=== PATIENT | male | born 2000 | race Caucasian/White ===

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

== ENCOUNTER → 2022-04-29 11:27 | Outpatient (BNVA) | payer MEDICAID, SELFPAY | PROVIDERS: PCP Nurse Practitioner; Visit Provider Nurse Practitioner | DX: J06.9 Acute upper respiratory infection, unspecified (principal); J02.9 Acute pharyngitis, unspecified; J45.909 Unspecified asthma, uncomplicated | CPT/HCPCS: 87070; 87071; 87486; 87581; 87633; 87880 ==

== ENCOUNTER → 2023-05-28 13:42 | Outpatient (BNVA) | payer SELFPAY | PROVIDERS: PCP Nurse Practitioner; Visit Provider Nurse Practitioner | DX: Z20.2 Contact with and (suspected) exposure to infections with a predominantly sexual mode of transmission (principal) | CPT/HCPCS: 87491; 87591; 87661 ==

== ENCOUNTER 2024-12-19 22:46 | Emergency (ER) | payer OTHER, SELFPAY ==
--- NOTE | 2024-12-19 00:01 | XRR_ITS ---
PROCEDURE INFORMATION: Exam: XR Chest Exam date and time: 12/19/2024 11:59 PM Age: 24 years old Clinical indication: Shortness of breath; Additional info: SOB TECHNIQUE: Imaging protocol: Radiologic exam of the chest. Views: 1 view. COMPARISON: No relevant prior studies available. FINDINGS: Lungs: Unremarkable. No consolidation. Pleural spaces: Unremarkable. No pleural effusion. No pneumothorax. Heart/Mediastinum: Unremarkable. No cardiomegaly. Bones/joints: Unremarkable. XR/XR chest 1V portable [id number] IMPRESSION: No acute findings.
[2024-12-19 22:48] VITALS: BP 145/80; PULSE 108; RESP 22; TEMP 36.8; O2SAT 94; BMI 38.4
--- NOTE | 2024-12-19 22:52 | ECG_ITS ---
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 Measurements Intervals [place] Rate: 110 P: 81 OH: 146 QRS: 72 QRSD: 93 T: 69 QT: 298 QTc: 404 Interpretive Statements SINUS TACHYCARDIA ABNORMAL RHYTHM ECG Compared to ECG 03/01/2016 10:57:29 Sinus rhythm no longer present Sinus arrhythmia no longer present Electronically Signed On 12-19-2024 23:27:08 CDT by Eric Delong M.D. [email or web address] [id number]
--- NOTE | 2024-12-19 23:59 | ECG_ITS ---
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 Measurements Intervals [place] Rate: 101 P: 105 ID: [id number] QRS: 155 QRSD: 89 T: 130 QT: 321 QTc: 416 Interpretive Statements SINUS TACHYCARDIA ARM LEADS REVERSED [INVERTED P AND QRS IN I] ABNORMAL RHYTHM ECG Compared to ECG 12/19/2024 22:52:34 No significant changes Electronically Signed On 12-21-2024 14:38:30 CDT by Eric Delong M.D. [email or web address] [id number]
[2024-12-20 00:28] VITALS: PULSE 99; RESP 22; O2SAT 94
--- NOTE | 2024-12-20 00:34 | ED_ITS ---
HPI - SOB/Dyspnea General: Chief Complaint: Shortness of Breath/Dyspnea Stated Complaint: SOB high heart rate Time Seen by Provider: 12/19/24 23:57 History of Present Illness: HPI Narrative: 24-year-old male with history of asthma presents with one month of shortness of breath and chest pain, markedly worse over the past week. Reports wheezing and difficulty sleeping due to breathing issues. Albuterol rescue inhaler is not providing relief when symptoms worsen. 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 Denies relief with current regimen. Accompanied by mother and partner. Emotional state calm but distressed by shortness of breath. Related Data Previous Rx's ?Medication ?Instructions ?Recorded cetirizine 10 mg tablet 10 mg PO DAILY #30 tabs 09/17 07/08 fluticasone propionate 50 1 spray intranasal DAILY 10 days 10/12/20 mcg/actuation nasal #16 grams spray,suspension (Flonase Allergy Relief) ondansetron 4 mg disintegrating 4 mg PO Q8H PRN nausea and 04/29/22 tablet vomiting #10 tabs albuterol sulfate 90 mcg/actuation 1 inh inhalation Q6 H PRN shortness 12/20/24 breath activated powder inhaler of breath or wheezing #1 ea fluticasone propionate 115 2 inh inhalation BID #12 gr ams 12/20/24 mcg-salmeterol 21 mcg/actuation HFA inhaler Allergies Allergy/AdvReac Type Severity Reaction Status Date / Time animal dander Allergy Mild Unknown Verified 05/28/23 10:26 COUNT INCLUDES THE [facility] ED PFSH: Medical History (Updated 12/20/24 @ 01:00 by Roger Green MD) Concussion 09/02/21 with loss of consciousness, nausea, vomiting; MARIANA: helmet came off after being hit/tackled in football Mild intermittent asthma Family History Other Asthma Social History Smoking and tobacco/nicotine status: current every day tobacco/nicotine user smokeless tobacco Second hand smoke exposure: Yes Alcohol intake: never Substance/Drug Use: never Adopted: No Lives independently: No Marital status: Single Number of children: 0 Highest education level completed: 11th Grade service: No Current occupational status: student Pets and animals: No Leisure activites: sports and hunting Current gender identity: Male Special anne needs: No Agree to transfusion: Yes Physical Exam Const: COMMON NORMALS: no acute distress, patient oriented x3 and alert HENMT: COMMON NORMALS: normocephalic and atraumatic HEAD & SCALP: normocephalic and atraumatic Eye: COMMON NORMALS: Equal, round and reactive pupils present, EOMs intact bilaterally and no scleral icterus PUPIL: Yes Equal, round and reactive pupils present Resp: OTHER: Almost absent breath sounds on the right, severely decreased on the left with severe wheezes. Prolonged expiratory phase with air trapping. Cardio: OTHER: Borderline tachycardic, regular rhythm. GI: COMMON NORMALS: Normal to inspection, nondistended, normoactive bowel sounds present, Soft to palpation and non-tender PALPATION: Yes Soft to palpation Neuro: COMMON NORMALS: patient oriented x3 SENSORIUM/ORIENTATION: Yes alert Skin: COMMON NORMALS: no rashes or lesions noted GENERAL SKIN EXAM: no rashes or lesions noted Course Vital Signs: Vital signs: Vital Signs Temperature 98.2 F 12/19/24 22:48 Pulse Rate 88 12/20/24 01:09 Respiratory Rate 18 12/20/24 01:09 Blood Pressure 143/94 12/20/24 01:09 Pulse Oximetry 98 12/20/24 01:09 Oxygen Delivery Me thod Room Air 12/20/24 00:28 MDM - SOB/Dyspnea Medical Decision Making EKG: Time?0005?sinus tachycardia, rate of 101, no ST segment elevation or depression, no T wave inversions, QTc = 379. 24-year-old male with asthma presents with one month of worsening shortness of breath and chest pain; albuterol not effective; not using daily inhaled corticosteroid; recent dust/coal exposure at work; difficulty sleeping. Vital signs show borderline tachycardia. Physical exam shows markedly decreased to absent breath sounds, severe wheezes, prolonged expiratory phase, air trapping, mild distress. Asthma exacerbation considered most likely by provider based on exam and history. Pneumonia considered and to be ruled out with imaging. Chest pain to be screened with EKG; no further cardiac reasoning documented. Patient received 3 DuoNeb treatments [id number] and breathing is much improved. Wheezes are all all but gone. He is moving air much better. He was also given Decadron. He will be started on a daily inhaled steroid in addition to rescue albuterol inhaler. He agrees to stop smoking, stop vaping, and try to decrease his exposures to possible allergens including dogs and work environment. He knows that he is always welcome back in the emergency department if needed. Lab Data Labs/Radiology: Radiology Impressions Chest X-Ray 12/19/24 00:01 IMPRESSION: No acute findings. All radiology interpretation(s) finalized by discharge Discharge Plan Discharge Patient Disposition: Home Clinical Impression: Asthma exacerbation Condition: Stable Prescriptions: New albuterol sulfate 90 mcg/actuation aerosol powdr breath activated 1 inh inhalation Q6H PRN (Reason: shortness of breath or wheezing) Qty: 1 10RF fluticasone propion-salmeterol 115-21 mcg/actuation HFA aerosol inhaler 2 inh inhalation BID Qty: 12 10RF Discontinued albuterol sulfate [ProAir HFA] 90 mcg/actuation HFA aerosol inhaler 2 puff inhalation Q4H PRN (Reason: shortness of breath or wheezing) Qty: 8.5 3RF albuterol sulfate [ProAir HFA] 90 mcg/actuation HFA aerosol inhaler See Rx Instructions .ROUTE .COMPLEX Qty: 8.5 2RF Dose Instruction: INHALE TWO PUFFS EVERY 4 HOURS NEEDED FOR bronchospasm Rx Instructions: INHALE TWO PUFFS EVERY 4 HOURS NEEDED FOR bronchospasm No Action cetirizine 10 mg tablet 10 mg PO DAILY Qty: 30 2RF fluticasone propionate [Flonase Allergy Relief] 50 mcg/actuation spray,suspension 1 spray intranasal DAILY 10 Days Qty: 16 0RF Rx Instructions: administer into each nostril ondansetron 4 mg tablet,disintegrating 4 mg PO Q8H PRN (Reason: nausea and vomiting) Qty: 10 0RF Rx Instructions: dissolve 1 tab on tongue every 8 hours as needed for nausea Discharge Orders: Discharge ED (Routine); Ordered 12/20/24 Ordered By: Roger Green Referrals: Luzmaria Manzo FNP-BC [Primary Care Provider, Pediatrics] Patient Instructions: Asthma Exacerbation - Adult, Moderate and Severe Persistent Asthma (ED), Patient Portal & [place] Instructions Activity Restrictions/Additional Instructions: Stop smoking everything. Avoid allergens as much as possible. If you are allergic to your dogs, think of a way to not be exposed to the dander when you sleep at night. It may be worth getting a HEPA filter air purifier for your bedroom and keeping the dogs out of your bedroom at night. Normal smoking or vaping. 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
[2024-12-20 01:09] VITALS: BP 143/94; PULSE 88; RESP 18; O2SAT 98
== END 2024-12-20 01:09 | disposition home or self-care (01) ==
PROVIDERS: Emergency Provider Student in an Organized Health Care Education/Training Program; PCP Nurse Practitioner
DX: J45.901 Unspecified asthma with (acute) exacerbation (principal); F17.290 Nicotine dependence, other tobacco product, uncomplicated
CPT/HCPCS: 71045; 93005; 94640; 99284; J1100; J9999